=== PATIENT | female | born 1995 | race African-American/Black ===

== ENCOUNTER 2017-01-26 01:00 | Emergency (ER) | payer OTHER ==
--- NOTE | 2017-01-26 01:34 | ED Physician Documentation ---
PD HPI FEMALE - Stated complaint Stated Complaint: FEMALE - Chief complaint Chief Complaint: General - History obtained from History obtained from: Patient - History of Present Illness Timing - onset: How many weeks ago (1) Timing - duration: Weeks (1) Timing - details: Gradual onset Pain level max: 3 Pain level max: 3 Associated symptoms: Vaginal pain, Vaginal discharge (white, thick) Contributing factors: Sexually active (), Other (states concerned about possible STD exposure). No: Similar symptoms before: Diagnosis (states diagnosed with a yeast infection by history, no exam done. Given diflucan, not improving.) Recently seen: Clinic Review of Systems Constitutional: denies: Fever, Chills Nose: denies: Rhinorrhea / runny nose, Congestion Cardiac: denies: Chest pain / pressure Respiratory: denies: Cough GI: denies: Abdominal Pain, Nausea, Vomiting, Diarrhea : denies: Dysuria Skin: denies: Rash Musculoskeletal: denies: Neck pain, Back pain Neurologic: denies: Headache PD PAST MEDICAL HISTORY - Past Medical History Respiratory: Asthma - Present Medications Home Medications: Ambulatory Orders Medication Instructions Recorded Confirmed Metronidazole [Flagyl] 500 mg PO BID #14 tablet 01/26/17 - Allergies Allergies/Adverse Reactions: Allergies Allergy/AdvReac Type Severity Reaction Status Date / Time hydrocodone bitartrate * Allergy Rash Verified 01/26/17 01:17 [From Vicodin] - Social History Does the pt smoke?: No Smoking Status: Never smoker Does the pt drink ETOH?: No Does the pt have substance abuse?: No - Immunizations Immunizations are current?: Yes PD ED PE NORMAL - Vitals Vital signs reviewed: Yes - General General: Alert and oriented X 3, No acute distress - HEENT HEENT: Moist mucous membranes - Neck Neck: Supple, no meningeal sign - Cardiac Cardiac: RRR - Respiratory Respiratory: No respiratory distress, Clear bilaterally - Abdomen Abdomen: Soft, Non tender, Non distended - Female Female : Public Service Officer present (Emmie GILLETTE), Other (Normal external exam, internal exam reveals an erythematous, irritated vaginal barbosa with thick whitish discharge. Normal-appearing cervix. No purulent discharge. No ovarian tenderness. No cervical motion tenderness) - Derm Derm: Warm and dry - Neuro Neuro: Alert and oriented X 3 Results - Vitals Vitals: Vital Signs - 24 hr 01/26/17 01/26/17 01:00 02:16 Temperature 37 C Heart Rate 120 H 94 Respiratory 20 14 Rate Blood Pressure 151/91 H 100/64 O2 Saturation 98 100 Oxygen O2 Source Room air - Labs Labs: Microbiology 01/26/17 01:30 EDWIN Preparation - Final Other - Vaginal 01/26/17 01:30 Wet Prep - Final Vaginal PD MEDICAL DECISION MAKING - ED course Complexity details: reviewed results, re-evaluated patient, considered differential, d/w patient ED course: Patient is a 21-year-old female who presents to the emergency department and is found to have what appears to be bacterial vaginitis. Will place on Flagyl for home. Gonorrhea chlamydia testing was also sent. No evidence of herpes infection. No open sores. No wounds. Counseled to have further STD testing with her doctor if she is concerned about potential STD exposure. No evidence of PID or tubo-ovarian abscess. Patient counseled regarding signs and symptoms for which I believe and urgent re-evaluation would be necessary. Patient with good understanding of and agreement to plan and is comfortable going home at this time This document was made in part using voice recognition software. While efforts are made to proofread this document, sound alike and grammatical errors may occur. Departure - Departure Disposition: Home, Self Care Clinical Impression: Bacterial vaginitis Condition: Good Instructions: ED Vaginosis Bacterial Follow-Up: your,doctor in 1 week [Other] Prescriptions: Metronidazole [Flagyl] 500 mg PO BID #14 tablet Comments: Return if you worsen. We also sent testing for gonorrhea and chlamydia and these will return in a few days. You will receive a call if they are positive. Do not drink alcohol with the flagyl as it will make you very ill. Your blood pressure was elevated today on check in to the emergency department. This does not mean that you have hypertension, it is a common phenomenon to check into the emergency department and have elevated blood pressure. I recommend that you see your primary care physician within the week to have it rechecked when you're feeling better. Discharge Date/Time: 01/26/17 02:16
[2017-01-26] MEDS ORDERED: metroNIDAZOLE 250 MG TABLET PO STA (02:02)
[2017-01-26] MEDS ORDERED: metroNIDAZOLE 250 MG TABLET PO ONE (02:12)
[2017-01-26 02:17] VITALS: BP 100/64
== END 2017-01-26 02:16 | disposition home or self-care (01) ==
LOC: ED 01:00
DX: N76.0 Acute vaginitis (principal); B96.89 Other specified bacterial agents as the cause of diseases classified elsewhere; R03.0 Elevated blood-pressure reading, without diagnosis of hypertension
CPT/HCPCS: 87210; 87220; 87491; 87591; 99283; A9270

== ENCOUNTER 2017-06-06 16:36 | Observation (INO) | payer OTHER ==
[2017-06-06 17:24] LABS: BASOPHILS # (AUTO) 0.1 10^3/uL (0.0-0.1); BASOPHILS % (AUTO) 0.5 %; EOSINOPHILS # (AUTO) 0.2 10^3/uL (0.0-0.7); EOSINOPHILS % (AUTO) 1.7 %; HGB - HEMOGLOBIN 12.6 g/dL (12.0-16.0); LYMPHOCYTES # (AUTO) 1.6 10^3/uL (1.5-3.5); LYMPHOCYTES % (AUTO) 13.8 %; MEAN CORPUSCULAR HEMOGLOBIN 29.9 pg (27.0-31.0); MEAN CORPUSCULAR HGB CONC 32.7 g/dL (32.0-36.0); MEAN CORPUSCULAR VOLUME 91.4 fL (81.0-99.0); MEAN PLATELET VOLUME 9.2 fL (7.9-10.8); MONOCYTES # (AUTO) 0.8 10^3/uL (0.0-1.0); MONOCYTES % (AUTO) 6.4 %; NEUTROPHILS # (AUTO) 9.3 10^3/uL (1.5-6.6); NEUTROPHILS % (AUTO) 77.6 %; PLT - PLATELET COUNT 208 10^3/uL (130-450); RED BLOOD COUNT 4.23 10^6/uL (4.20-5.40); RED CELL DISTRIBUTION WIDTH 13.6 % (12.0-15.0); WHITE BLOOD COUNT 11.9 x10^3/uL (4.8-10.8)
[2017-06-06 17:40] LABS: ALBUMIN 3.7 g/dL (3.2-5.5); ALBUMIN/GLOBULIN RATIO 1.1 (1.0-2.2); BILIRUBIN,TOTAL 0.3 mg/dL (0.2-1.0); CALCIUM 9.2 mg/dL (8.5-10.3); CREATININE 0.6 mg/dL (0.4-1.0)
[2017-06-06 18:27] LABS: BILIRUBIN,URINE NEGATIVE (NEGATIVE); CLARITY,URINE CLEAR (CLEAR); GLUCOSE, URINE (UA) NEGATIVE (NEGATIVE); KETONES,URINE (UA) NEGATIVE (NEGATIVE); LEUKOCYTE ESTERASE, URINE NEGATIVE (NEGATIVE); NITRITE,URINE NEGATIVE (NEGATIVE); OCCULT BLOOD,URINE NEGATIVE (NEGATIVE); PROTEIN,URINE NEGATIVE (NEGATIVE); UROBILINOGEN,URINE 0.2 (NORMAL) E.U./dL (NORMAL)
--- NOTE | 2017-06-06 19:25 | ED Physician Documentation ---
History of Present Illness - Stated complaint Stated Complaint: ABD PX/12WEEKS PREG - Chief complaint Chief Complaint: General - History obtained from History obtained from: Patient - History of Present Illness Timing: Today Pain level max: 7 Pain level now: 7 Improved by: nothing Worsened by: palpation, movement - Additonal information Additional information: Pt is 12 weeks . , RLQ pain started today. Has not taken anything. No vaginal bleeding or discharge. Review of Systems Ten Systems: 10 systems reviewed and negative Constitutional: denies: Fever, Chills Nose: denies: Rhinorrhea / runny nose, Congestion Throat: denies: Sore throat Cardiac: denies: Chest pain / pressure Respiratory: denies: Cough GI: denies: Nausea, Vomiting, Diarrhea : denies: Now EGA Skin: denies: Rash Musculoskeletal: denies: Neck pain, Back pain Neurologic: denies: Headache PD PAST MEDICAL HISTORY - Past Medical History Past Medical History: Yes Respiratory: Asthma - Past Surgical History Past Surgical History: Yes Cardiovascular: Other - Present Medications Home Medications: Ambulatory Orders Medication Instructions Recorded Confirmed Metronidazole [Flagyl] 500 mg PO BID #14 tablet 01/26/17 - Allergies Allergies/Adverse Reactions: Allergies Allergy/AdvReac Type Severity Reaction Status Date / Time hydrocodone bitartrate * Allergy Rash Verified 06/06/17 17:02 [From Vicodin] - Social History Does the pt smoke?: No Smoking Status: Never smoker Does the pt drink ETOH?: No Does the pt have substance abuse?: No - Immunizations Immunizations are current?: Yes - POLST Patient has POLST: No PD ED PE NORMAL - Vitals Vital signs reviewed: Yes - General General: Alert and oriented X 3, No acute distress - HEENT HEENT: Moist mucous membranes - Neck Neck: Supple, no meningeal sign - Cardiac Cardiac: RRR, Strong equal pulses - Respiratory Respiratory: No respiratory distress, Clear bilaterally - Abdomen Abdomen: Soft, Non distended, Other (TTP RLQ at [place]. no peritoneal signs) - Female Female : Pt declined - Back Back: No CVA TTP, No spinal TTP - Derm Derm: Warm and dry, No rash - Extremities Extremities: No edema - Neuro Neuro: Alert and oriented X 3 - Psych Psych: Normal mood, Normal affect Results - Vitals Vitals: Vital Signs - 24 hr 06/06/17 06/06/17 16:59 22:42 Temperature 36.6 C Heart Rate 67 54 L Respiratory 16 18 Rate Blood Pressure 134/70 H 119/64 O2 Saturation 100 100 Oxygen O2 Source Room air - Labs Labs: Laboratory Tests 06/06/17 06/06/17 06/06/17 17:20 17:20 17:20 WBC 11.9 H RBC 4.23 Hgb 12.6 Hct 38.7 MCV 91.4 MCH 29.9 MCHC 32.7 RDW 13.6 Plt Count 208 MPV 9.2 Neut # 9.3 H Lymph # 1.6 [place] # 0.8 Eos # 0.2 Baso # 0.1 Absolute Nucleated RBC 0.00 Nucleated RBC % 0.0 Sodium 133 L Potassium 4.0 Chloride 101 Carbon Dioxide 23 Anion Gap 9.0 BUN 7 Creatinine 0.6 Estimated GFR (MDRD) 152 Glucose 107 H Calcium 9.2 Total Bilirubin 0.3 AST 18 ALT 12 Alkaline Phosphatase 43 Total Protein 7.0 Albumin 3.7 Globulin 3.3 Albumin/Globulin Ratio 1.1 Lipase 22 HCG, Quant 501027.00 Urine Color Urine Clarity Urine pH Ur Specific [place] Urine Protein Urine Glucose (UA) Urine Ketones Urine Occult Blood Urine Nitrite Urine Bilirubin Urine Urobilinogen Ur Leukocyte Esterase Ur Microscopic Review Urine Culture Comments 06/06/17 18:20 WBC RBC Hgb Hct MCV MCH MCHC RDW Plt Count MPV Neut # Lymph # [place] # Eos # Baso # Absolute Nucleated RBC Nucleated RBC % Sodium Potassium Chloride Carbon Dioxide Anion Gap BUN Creatinine Estimated GFR (MDRD) Glucose Calcium Total Bilirubin AST ALT Alkaline Phosphatase Total Protein Albumin Globulin Albumin/Globulin Ratio Lipase HCG, Quant Urine Color YELLOW Urine Clarity CLEAR Urine pH 6.0 Ur Specific [place] 1.025 Urine Protein NEGATIVE Urine Glucose (UA) NEGATIVE Urine Ketones NEGATIVE Urine Occult Blood NEGATIVE Urine Nitrite NEGATIVE Urine Bilirubin NEGATIVE Urine Urobilinogen 0.2 (NORMAL) Ur Leukocyte Esterase NEGATIVE Ur Microscopic Review NOT INDICATED Urine Culture Comments NOT INDICATED - Rads (name of study) abd US Radiology: Prelim report reviewed, EMP read contemporaneously, See rad report ( Appendix not definitively identified) PD MEDICAL DECISION MAKING - ED course Complexity details: reviewed results, re-evaluated patient, considered differential, d/w patient, d/w [employer] commerce consultant ED course: Patient is a 21-year-old female, approximately 12 weeks who presents to the emergency department with right lower quadrant abdominal pain. Appendix is not definitively identified on ultrasound, has continued pain on repeat evaluation is [employer] at [place] point. Mildly elevated white blood cell count possibly related to ? Discussed the case with Dr. Stewart , general surgery on-call who will place the patient in observation for likely MRI in the morning versus serial exams. This document was made in part using voice recognition software. While efforts are made to proofread this document, sound alike and grammatical errors may occur. Departure - Departure Disposition: ED Place in Observation Clinical Impression: Abdominal pain affecting Condition: Good
--- NOTE | 2017-06-06 22:20 | Ultrasound Report ---
EXAM: LIMITED ABDOMINAL ULTRASOUND EXAM DATE: 06/06/2017 10:08 PM. CLINICAL HISTORY: RLQ pain. COMPARISON: None. TECHNIQUE: Real-time scanning was performed of the right lower quadrant with static images obtained. FINDINGS: APPENDIX: The appendix is not definitely seen. ASSOCIATED FINDINGS: Lymph Nodes Seen: None. Free Fluid/Complex Fluid Seen: None. Other: There is a single live intrauterine gestation. IMPRESSION: The appendix is not definitely seen. [facility] Referring Provider Line: [phone] SITE ID: [id number]
[2017-06-06] MEDS ORDERED: ONDANSETRON 4 MG/2 ML VIAL IVP PRN (22:54)
[2017-06-06] MEDS ORDERED: ACETAMINOPHEN 325 MG TABLET PO PRN (22:54)
[2017-06-06] MEDS ORDERED: diphenhydrAMINE 25 MG CAPSULE PO PRN (22:58)
[2017-06-06] MEDS ORDERED: LACTATED RINGERS 1,000 ML IV SCH (23:00)
[2017-06-07] MEDS: SODIUM CHLORIDE FLUSH 0.9% 10 ML SYRINGE IVP PRN ×3 (01:24→10:10)
[2017-06-07] MEDS: MORPHINE 2 MG/ML CARPUJECT IVP PRN ×4 (01:25→10:02)
[2017-06-07] MEDS ORDERED: SODIUM CHLORIDE FLUSH 0.9% 10 ML SYRINGE IVP SCH (06:00)
[2017-06-07 06:44] LABS: BASOPHILS % (AUTO) 0.4 %; EOSINOPHILS # (AUTO) 0.2 10^3/uL (0.0-0.7); EOSINOPHILS % (AUTO) 2.3 %; HGB - HEMOGLOBIN 11.5 g/dL (12.0-16.0); LYMPHOCYTES # (AUTO) 1.9 10^3/uL (1.5-3.5); LYMPHOCYTES % (AUTO) 21.9 %; MEAN CORPUSCULAR HEMOGLOBIN 30.6 pg (27.0-31.0); MEAN CORPUSCULAR HGB CONC 33.3 g/dL (32.0-36.0); MEAN CORPUSCULAR VOLUME 91.7 fL (81.0-99.0); MEAN PLATELET VOLUME 9.8 fL (7.9-10.8); MONOCYTES # (AUTO) 0.6 10^3/uL (0.0-1.0); MONOCYTES % (AUTO) 7.2 %; NEUTROPHILS # (AUTO) 5.9 10^3/uL (1.5-6.6); NEUTROPHILS % (AUTO) 68.2 %; PLT - PLATELET COUNT 174 10^3/uL (130-450); RED BLOOD COUNT 3.76 10^6/uL (4.20-5.40); RED CELL DISTRIBUTION WIDTH 13.2 % (12.0-15.0); WHITE BLOOD COUNT 8.6 x10^3/uL (4.8-10.8)
[2017-06-07] MEDS ORDERED: LORazepam 0.5 MG TABLET PO SCH (08:00)
--- NOTE | 2017-06-07 08:48 | HISTORY & PHYSICAL EXAMINATION ---
Chief Complaint - Chief Complaint Chief Complaint: right lower quadrant pain Abdominal Pain HPI - Admitted From Admitted from: ED - History Obtained From History obtained from: Patient - History of Present Illness HPI Comment/Other: This is a 21 year old 12 week gestation female who presented to the emergency department last night for right lower quadrant pain for one day. She denies associated nausea or emesis and feels hungry. Upon evaluation in the emergency department her WBC was noted to be 11 and she was afebrile. An abdominal US was performed which did not define the appendix, did not detect any complex fluid collections and did note some trace fluid in the pelvis. A surgical consultation was obtained for possible appendicitis. PMH/PSH - Past Medical History Cardiovascular: positive: None Respiratory: positive: Asthma Neuro: positive: None Endocrine/Autoimmune: positive: None GI: positive: Hemorrhoids : positive: None HEENT: positive: None Psych: positive: Anxiety, Claustrophobia Musculoskeletal: positive: None Derm: positive: None MRSA Hx?: No - Past Surgical History Cardiovascular: positive: Other Social & Family Hx - Social History Does the pt smoke?: No Smoking Status: Former smoker Does the pt drink ETOH?: No Does the pt have substance abuse?: No - POLST Patient has POLST: No Meds/Allgy - Home Medications Home Medications: Ambulatory Orders Medication Instructions Recorded Confirmed Metronidazole [Flagyl] 500 mg PO BID #14 tablet 01/26/17 - Allergies Allergies/Adverse Reactions: Allergies Allergy/AdvReac Type Severity Reaction Status Date / Time hydrocodone bitartrate * Allergy Rash Verified 06/06/17 17:02 [From Vicodin] Review of Systems - Constitutional Constitutional: denies: Fever - Gastrointestinal Gastrointestinal: reports: Abdominal pain. denies: Nausea, Vomiting Exam - Vital Signs Reviewed Vital Signs: Yes Vital Signs: Vital Signs x48h Temp Pulse Resp BP Pulse Ox 06/07/17 08:26 37.0 C 52 L 17 106/52 L 99 06/07/17 06:07 37.1 C 53 L 16 109/56 L 100 - Physical Exam General Appearance: positive: No acute distress Respiratory: positive: No respiratory distress Cardiovascular: positive: Regular rate & rhythm Abdomen: positive: Other (tender to palpatin in bilateral lower abdominal quadrants. No peritoneal signs) Extremities: positive: No pedal edema Neurologic/Psychiatric: positive: Oriented x3 Results - Lab Results Fish Bones: 06/07/17 06:05 06/06/17 17:20 Other Lab Results: Lab Results x24hrs 06/07/17 Range/Units 06:05 WBC 8.6 (4.8-10.8) x10^3/uL RBC 3.76 L (4.20-5.40) 10^6/uL Hgb 11.5 L (12.0-16.0) g/dL Hct 34.5 L (37.0-47.0) % MCV 91.7 (81.0-99.0) fL MCH 30.6 (27.0-31.0) pg MCHC 33.3 (32.0-36.0) g/dL RDW 13.2 (12.0-15.0) % Plt Count 174 (130-450) 10^3/uL MPV 9.8 (7.9-10.8) fL Neut # 5.9 (1.5-6.6) 10^3/uL Lymph # 1.9 (1.5-3.5) 10^3/uL [place] # 0.6 (0.0-1.0) 10^3/uL Eos # 0.2 (0.0-0.7) 10^3/uL Baso # 0.0 (0.0-0.1) 10^3/uL Absolute Nucleated RBC 0.00 x10^3/uL Nucleated RBC % 0.0 /100WBC ARRA - Anticipated LOS Anticipated Stay Length: Less than 2 midnights Impression/Plan - Problem List Problem List: This is a 21 year old 12 week gestation female with RLQ abdominal pain - Patient has remained afebrile overnight with normalization of her WBC. She has not received antibiotics. - MRI abd and pelvis pending. If Appendicitis is present she will require operative appendectomy. Continue NPO until completion of exam.
[2017-06-07] MEDS ORDERED: POLYETHYLENE GLYCOL 3350 17 GM PACKET PO SCH (09:00)
--- NOTE | 2017-06-07 09:58 | MRI Report ---
EXAM: MR PELVIS WITHOUT CONTRAST EXAM DATE: 06/07/2017 09:17 AM. CLINICAL HISTORY: Abd pain. 12 weeks . Rule out appendicitis. COMPARISON: None. TECHNIQUE: Multiplanar breath-hold T1, T2, and DWI sequences obtained through the pelvis on an [facility]. No intravenous contrast given. FINDINGS: Bowel: The visualized portions of the small bowel, colon, and rectum appear normal. A normal appendix is partially visualized, for example sagittal series 701 images 22 and 23, axial series 901 images 2 8-31, and coronal series 1401 images 13-15). No periappendiceal inflammatory change. Other: There is trace free fluid in the right lower quadrant and cul-de-sac, of doubtful clinical sig nificance. No loculated fluid collection. No evidence of hydronephrosis on the manufacturing associate images. Bladder: The urinary bladder is normal. Reproductive Organs: Expected appearance of the gravid uterus. The ovaries are within normal limits. Bony Structures: The visualized osseous structures are within normal limits. IMPRESSION: No evidence of appendicitis. [facility] Referring Provider Line: [phone] SITE ID: [id number]
--- NOTE | 2017-06-07 10:04 | Discharge Plan ---
Discharge Plan Disposition: 01 Home, Self Care Condition: Good Diet: Regular Activity Restrictions: No Restrictions Shower Restrictions: No Driving Restrictions: No Additional Instructions or Follow Up instructions: Follow up with your ObGyn next week. Take Tylenol and Ibuprofen as needed for pain. No Smoking: If you smoke, Please STOP! Call for help. Follow-up with: VILMA GIBBONS [Primary Care Provider] -
--- NOTE | 2017-06-07 10:06 | DISCHARGE SUMMARY ---
Discharge Summary Admit Date: 06/06/17 Discharge Date: 06/07/17 Condition at Discharge: Good Discharge Disposition: 01 Home, Self Care - DIAGNOSES Admission Diagnoses: abdominal pain Discharge Diagnoses with Status of Each Condition: abdominal pain - HPI History of Present Illness: RLQ pain 12 weeks gestation. - HOSPITAL COURSE Hospital Course: MRI abdomen performed which demonstrates normal appendix. - ALLERGIES Allergies/Adverse Reactions: Allergies Allergy/AdvReac Type Severity Reaction Status Date / Time hydrocodone bitartrate * Allergy Rash Verified 06/06/17 17:02 [From Vicodin] - MEDICATIONS Home Medications: Ambulatory Orders Medication Instructions Recorded Confirmed Metronidazole [Flagyl] 500 mg PO BID #14 tablet 01/26/17 - PHYSICAL EXAM AT DISCHARGE General Appearance: positive: No acute distress Respiratory: positive: No respiratory distress Cardiovascular: positive: Regular rate & rhythm Abdomen: positive: Other (pelvic tenderness to palpatin without peritoneal signs ) - LABS Result Diagrams: 06/07/17 06:05 06/06/17 17:20 - FOLLOW UP Follow Up: Follow up with ObGyn. - TIME SPENT Time Spent in Discharge (Minutes): 20
[2017-06-07 12:57] VITALS: BP 106/44
== END 2017-06-07 12:59 | disposition home or self-care (01) ==
LOC: ED 16:36 → OBS 22:54
PROVIDERS: ADMIT Surgery; ATTEND Surgery
DX: O99.89 Other specified diseases and conditions complicating pregnancy, childbirth and the puerperium (principal); R10.31 Right lower quadrant pain; Z3A.12 12 weeks gestation of pregnancy; Z87.891 Personal history of nicotine dependence
CPT/HCPCS: 36415; 72195; 74181; 76705; 80053; 81003; 83690; 84702; 85025; 96361; 96374; 96375; 96376; 99283; 99284; A9270; G0378; J7120; 81001; 84703; 87086